=== PATIENT | male | born 1955 | race Two or more races ===

== ENCOUNTER 2022-04-18 13:42 | Outpatient (CLI) | payer OTHER | END 2022-04-18 13:51 | disposition home or self-care (01) | LOC: RAD 13:42 | PROVIDERS: ATTEND Neurological Surgery | DX: M43.16 Spondylolisthesis, lumbar region (principal) ==

== ENCOUNTER 2022-05-22 09:40 | Outpatient (CLI) | payer OTHER | END 2022-05-22 09:56 | disposition home or self-care (01) | LOC: SONOGRAMA 09:40 | PROVIDERS: ATTEND Internal Medicine Gastroenterology | DX: E04.8 Other specified nontoxic goiter (principal); R16.0 Hepatomegaly, not elsewhere classified ==

== ENCOUNTER 2022-11-04 11:09 | Outpatient (CLI) | payer OTHER | END 2022-11-04 11:13 | disposition home or self-care (01) | LOC: RAD 11:09 | PROVIDERS: ATTEND Orthopaedic Surgery Sports Medicine | DX: M17.0 Bilateral primary osteoarthritis of knee (principal) ==

== ENCOUNTER → 2022-11-26 | Outpatient (CLI) | payer OTHER | END | disposition home or self-care (01) | LOC: SONOGRAMA 08:59 | DX: N41.1 Chronic prostatitis (principal) ==

== ENCOUNTER 2023-07-01 07:52 | Outpatient (CLI) | payer OTHER | END 2023-07-01 07:59 | disposition home or self-care (01) | LOC: SONOGRAMA 07:52 | PROVIDERS: ATTEND Physical Medicine & Rehabilitation | DX: K76.0 Fatty (change of) liver, not elsewhere classified (principal) ==